=== PATIENT | male | born 1965 | race Caucasian/White ===

== ENCOUNTER 2016-09-18 06:36 | Day surgery (SDC) | payer OTHER ==
[~2016-09-18] VITALS: Ht 181.6 cm; Wt 100.0 kg
[~2016-09-18 06:36] MED LIST: ALBU8.5H IH; CYCL10 PO; DULO30CA2 PO; FLUT44HFA IH; LISI-662 PO; METH20TA19 PO; MONT10TA21 PO; OMEP20 PO; OXYC5TAB3 PO; TESTOSTERONE IM; TRAZ-144 PO
[2016-09-18] MEDS ORDERED: SODIUM CHLORIDE 0.9% 1,000 ML IV ONE ×2 (07:03→08:00)
[2016-09-18] MEDS ORDERED: MIDAZOLAM HCL 2 MG/2 ML VIAL ONE (08:02)
[2016-09-18] MEDS ORDERED: FentaNYL CITRATE-PF 100 MCG/2 ML VIAL ONE ×2 (08:02→09:13)
[2016-09-18] MEDS ORDERED: MethylPREDNISolone SOD SUCC 125 MG/2 ML VIAL IVP ONE (08:45)
[2016-09-18] MEDS ORDERED: MethylPREDNISolone SOD SUCC 125 MG/2 ML VIAL ONE (09:54)
[2016-09-18] MEDS ORDERED: LIDOCAINE HCL 4% 50 ML SOLUTION TP ONE (17:11)
[2016-09-18] MEDS ORDERED: BENZOCAINE 20% 50 MCG/SPRAY 57 GM TP ONE (17:11)
[2016-09-18] MEDS ORDERED: LIDOCAINE HCL 2% 30 ML JELLY TP ONE (17:11)
[2016-09-18] MEDS ORDERED: OXYGEN THERAPY IH SCH (20:00)
== END 2016-09-18 11:10 | disposition home or self-care (01) ==
LOC: SURGERY 06:36
PROVIDERS: ATTEND Internal Medicine Critical Care Medicine
DX: J38.4 Edema of larynx (principal); B37.0 Candidal stomatitis; M54.9 Dorsalgia, unspecified; Z88.8 Allergy status to other drugs, medicaments and biological substances; Z98.890 Other specified postprocedural states; Z87.01 Personal history of pneumonia (recurrent)
CPT/HCPCS: 31623; 31624; 71010; 87015 ×2; 87070; 87101; 87205; 87220; 88108; 88312; J2250; J2930; J3010; J7030